=== PATIENT | female | born 1970 | race Two or more races ===

== ENCOUNTER 2020-05-30 05:40 | Day surgery (SDC) | payer OTHER ==
[~2020-05-30 05:40] MED LIST: HYDRODIURIL PO
[2020-05-30] MEDS ORDERED: MORGIDOX100 MG PO (08:31)
[2020-05-30] MEDS ORDERED: Tylenol #3 PO (08:31)
== END 2020-05-30 12:15 | disposition home or self-care (01) ==
LOC: CIR.AMB 05:40
PROVIDERS: ATTEND Obstetrics & Gynecology
DX: D25.0 Submucous leiomyoma of uterus (principal); N84.0 Polyp of corpus uteri; Z20.828 Contact with and (suspected) exposure to other viral communicable diseases